=== PATIENT | male | born 1950 | race Caucasian/White ===

== ENCOUNTER → 2022-12-19 08:39 | Outpatient (REF) | payer MEDICARE, SELFPAY | LOC: WOUND 08:39 | PROVIDERS: ATTENDING PHYSICIAN Surgery; REFERRING PHYSICIAN Internal Medicine | DX: S51.812A Laceration without foreign body of left forearm, initial encounter (principal); I27.82 Chronic pulmonary embolism; I26.99 Other pulmonary embolism without acute cor pulmonale; Z79.01 Long term (current) use of anticoagulants; R13.19 Other dysphagia; Z98.890 Other specified postprocedural states; Z87.448 Personal history of other diseases of urinary system; K21.00 Gastro-esophageal reflux disease with esophagitis, without bleeding; X58.XXXA Exposure to other specified factors, initial encounter | CPT/HCPCS: 11042; 97597 ==

== ENCOUNTER → 2024-11-24 06:54 | Outpatient (REF) | payer MEDICARE, SELFPAY ==
[2024-11-24 08:14] LABS: Hematocrit 39.0 % (39.0-52.0); Hemoglobin 12.6 g/dL (13.0-18.0); Mean Corp Hgb Conc. 32.3 g/dL (33.0-37.0); Mean Corpuscular Volume 89.4 fL (80.0-94.0); Nucleated Red Blood Cells % 0 % (-); Platelet Count 225 10^3/uL (130-400); Red Cell Dist. Width 13.9 % (11.5-14.5)
[2024-11-24 08:18] LABS: Urine Character Mucous (Clear)
[2024-11-24 08:41] LABS: Urine White Cell 30-40 /HPF (0-5)
[2024-11-24 08:43] LABS: Urine Red Blood Cell 0-2 /HPF (0-2); Urine Squamous Cell 0-2 /LPF (Few)
[2024-11-24 09:23] LABS: PSA, Total - Screen < 0.06 ng/ml (0.0-4.0); TSH 2.80 uIU/ml (0.47-4.68)
[2024-11-24 09:30] LABS: Microalbumin, Random Urine 9.8 mg/dl (0.6-1.7)
[2024-11-24 09:31] LABS: ALT (SGPT) 20 U/L (0-50); AST (SGOT) 26 U/L (17-59); Albumin 4.4 g/dl (3.5-5.0); Alkaline Phosphatase 55 U/L (38-126); Blood Urea Nitrogen 24 mg/dl (9-20); Calcium 9.0 mg/dl (8.4-10.2); Carbon Dioxide 26 mmol/L (22-30); Chloride 106 mmol/L (98-107); Glucose 95 mg/dl (70-99); HDL Cholesterol 73 mg/dl; LDL Cholesterol, Calculated 172 mg/dl; Potassium 4.6 mmol/L (3.5-5.1); Sodium 140 mmol/L (135-145); Total Protein 7.2 g/dl (6.3-8.2); Uric Acid 6.2 mg/dl (3.5-8.5); Very Low Density Lipoprotein 19 mg/dl (0-30); eGFR > 60.00
[2024-11-24 09:31] LABS: Microalb - Urine Creatinine 83.600 mg/dl
[2024-11-26 09:47] LABS: CRP, Ultra Sensitive 4.61 mg/L (0.30-5.00)
== END ==
LOC: REG 06:54
PROVIDERS: ATTENDING PHYSICIAN Internal Medicine
DX: E78.00 Pure hypercholesterolemia, unspecified (principal); R13.19 Other dysphagia; Z12.5 Encounter for screening for malignant neoplasm of prostate; R73.01 Impaired fasting glucose; Z78.9 Other specified health status; R09.89 Other specified symptoms and signs involving the circulatory and respiratory systems
CPT/HCPCS: 36415; 80053; 80061; 81003; 81015; 82043; 82172; 82570; 83525; 84443; 84550; 85025; 86141; G0103

== ENCOUNTER → 2024-11-26 07:55 | Outpatient (REF) | payer MEDICARE, SELFPAY ==
[2024-11-26 10:14] LABS: INR 0.95; PT 13.0 Sec (11.4-14.6)
[2024-11-26 10:15] LABS: APTT 23.5 Sec (23.4-35.0)
== END ==
LOC: RCS 07:55
PROVIDERS: ATTENDING PHYSICIAN Nurse Practitioner Acute Care; FAMILY PHYSICIAN Internal Medicine
DX: G50.0 Trigeminal neuralgia (principal); Z01.818 Encounter for other preprocedural examination; G96.89 Other specified disorders of central nervous system
CPT/HCPCS: 36415; 85610; 85730; 93005

== ENCOUNTER → 2024-12-10 07:45 | Outpatient (REF) | payer MEDICARE, SELFPAY | LOC: RAD 07:45 | PROVIDERS: ATTENDING PHYSICIAN Internal Medicine | DX: R09.89 Other specified symptoms and signs involving the circulatory and respiratory systems (principal) | CPT/HCPCS: 93880 ==